=== PATIENT | male | born 1990 ===

== ENCOUNTER 2019-12-24 17:09 | Emergency (ER) | payer BC ==
[2019-12-24 17:15] VITALS: BP 124/74
--- NOTE | 2019-12-24 18:28 | Cat Scan Report ---
{null, CT ABDOMEN AND PELVIS WITHOUT CONTRAST HISTORY: KIDNEY STONES. Patient is reportedly having surgery on 12/25/2019 COMPARISON: None. TECHNIQUE: CT images of the abdomen and pelvis were obtained without administration of intravenous co ntrast. All CT scans at this location are performed using CT dose reduction for ALARA by means of au tomated exposure control. FINDINGS: Lungs/bones: Lung bases are clear. No acute osseous abnormality. Abdomen/pelvis: 4 mm stone in the proximal right ureter as measured on image #187 of series #2, with mild hydronephrosis. There is also nonobstructive nephrolithiasis in the left kidney with a conglome rate of stones in the mid to lower pole measuring up to 7 mm in maximal dimension. Additional punctat e nonobstructive nephrolithiasis seen in the lower pole the right kidney, as well. There is no renal mass or cyst. The liver is borderline enlarged with no focal mass identified. The gallbladder, spleen, pancreas, ad renals, and proximal GI tract appear unremarkable. Prostate is enlarged. Urinary bladder is unremarkable. No pelvic free fluid or acute colonic abnormal ity identified. There is mild colonic diverticulosis with no acute inflammatory change. The appendix is normal. IMPRESSION: 1. 4 mm stone in the proximal right ureter with mild hydronephrosis. 2. Additional bilateral nonobstructive nephrolithiasis in the kidneys. Signer Name: Ramón Jamil MD Signed: 12/24/2019 6:23 PM Workstation Name: [id number] }
== END 2019-12-25 00:58 | disposition left against medical advice (07) ==
LOC: ED 17:09
DX: N20.0 Calculus of kidney (principal); Z53.21 Procedure and treatment not carried out due to patient leaving prior to being seen by health care provider
CPT/HCPCS: 74176